=== PATIENT | female | born 1960 | race Caucasian/White ===

== ENCOUNTER 2017-09-05 07:40 | Outpatient (CLI) | payer OTHER | END 2017-09-05 11:26 | disposition home or self-care (01) | LOC: MRI 07:40 | DX: E06.3 Autoimmune thyroiditis (principal); E03.8 Other specified hypothyroidism; I10 Essential (primary) hypertension; D51.1 Vitamin B12 deficiency anemia due to selective vitamin B12 malabsorption with proteinuria; R10.10 Upper abdominal pain, unspecified | CPT/HCPCS: 74181 ==

== ENCOUNTER 2017-10-17 09:00 | Inpatient (IN) | payer OTHER ==
[~2017-10-17] VITALS: Ht 154.9 cm; Wt 166.0 kg
[2017-10-17] MEDS ORDERED: COZAAR100 MG (09:17)
[2017-10-17] MEDS ORDERED: SYNTHROID150 MCG (09:17)
== END 2017-10-19 15:47 | disposition home or self-care (01) | DRG 310 ==
LOC: ER 09:00 → MEDI 19:01
PROC: B246ZZZ Ultrasonography of Right and Left Heart (ICD-10-PCS; principal; 2017-10-17)
PROC: 4A12X4Z Monitoring of Cardiac Electrical Activity, External Approach (ICD-10-PCS; 2017-10-17)
DX: I48.0 Paroxysmal atrial fibrillation (principal); I10 Essential (primary) hypertension; E03.8 Other specified hypothyroidism; J32.8 Other chronic sinusitis

== ENCOUNTER → 2018-04-21 | Emergency (ER) | payer OTHER ==
[~2018-04-21] VITALS: Ht 154.9 cm; Wt 77.1 kg
[~2018-04-21] MED LIST: COZAAR100 MG; SYNTHROID150 MCG; TOPROL XL25 M1; XARELTO20 MG
== END | disposition home or self-care (01) ==
LOC: ER 20:45
DX: I10 Essential (primary) hypertension (principal)